=== PATIENT | female | born 1970 | race African-American/Black ===

== ENCOUNTER 2025-09-18 09:48 | Emergency (ER) | payer OTHER ==
[2025-09-18] MEDS ORDERED: Cyclobenzaprine 10 MG TAB ONE (11:09)
[2025-09-18] MEDS ORDERED: Ibuprofen 200 MG TAB ONE (11:09)
== END 2025-09-18 13:05 | disposition home or self-care (01) ==
LOC: CSHERS 09:48
DX: S39.012A Strain of muscle, fascia and tendon of lower back, initial encounter (principal); W01.0XXA Fall on same level from slipping, tripping and stumbling without subsequent striking against object, initial encounter; Y92.89 Other specified places as the place of occurrence of the external cause
CPT/HCPCS: 72100; 99283